=== PATIENT | female | born 1960 | race Caucasian/White ===

== ENCOUNTER 2019-07-31 16:44 | Inpatient (IN) | payer MEDICAID ==
[~2019-07-31] VITALS: Ht 152.4 cm; Wt 52.2 kg
[2019-07-31] MEDS ORDERED: SODIUM CHLORIDE 0.9% 1,000 ML IV ONE (18:16)
[2019-07-31] MEDS ORDERED: IPRATROPIUM BROMIDE (0.02%) 0.5MG/2.5ML NEB HHN STA (18:16)
[2019-07-31] MEDS ORDERED: ALBUTEROL (0.083%) 2.5MG/3ML NEB HHN STA (18:16)
[2019-07-31] MEDS ORDERED: METHYLPREDNISOLONE SOD SUCC 125 MG/2 ML VIAL IV STA (18:16)
[2019-07-31 18:31] LABS: BASOPHILS % 0.6 % (0.0-2.0); EOSINOPHILS % 1.9 % (0.0-5.0); HEMATOCRIT. 37.8 % (36.0-48.0); HEMOGLOBIN. 12.5 g/dL (12.0-16.0); LYMPHOCYTES % 17.8 % (20.0-50.0); MEAN CORPUSCULAR HEMOGLOBIN 30.9 pg (28.0-32.0); MEAN CORPUSCULAR VOLUME 93.2 fL (81.0-99.0); MEAN PLATELET VOLUME 8.8 fl (7.4-10.4); MONOCYTES % 4.5 % (2.0-8.0); NEUTROPHILS % 75.2 % (40.0-76.0); PLATELET 238 x1000/uL (130-400); RED BLOOD CELL COUNT 4.06 mill/uL (4.2-5.4); RED CELL DISTRIBUTION WIDTH 15.4 % (11.6-14.6)
[2019-07-31 18:37] LABS: CHLORIDE 106 mEq/L (98-107); PROTHROMBIN TIME 10.3 sec (9.6-11.0)
[2019-07-31] MEDS ORDERED: PIPERACILLIN/TAZ 3.375G PREMIX 50 ML IV ONE (19:00)
[2019-07-31] MEDS ORDERED: SODIUM CHLORIDE 0.9% 1000ML BAG (SEPSIS BOLUS) IV ONE (19:00)
[2019-07-31] MEDS ORDERED: LEVOFLOXACIN 500MG PREMIX 100 ML IV ONE (19:00)
[2019-07-31 23:05] VITALS: BP 104/69
[2019-08-01] MEDS ORDERED: IPRATROPIUM/ALBUTEROL 0.5-3(2.5)MG/3ML NEB HHN PRN (00:45)
[2019-08-01] MEDS ORDERED: ONDANSETRON HCL 4MG/2ML INJ IV PRN (00:45)
[2019-08-01] MEDS: SODIUM CHLORIDE 0.9% 1,000 ML IV SCH ×2 (01:11→22:00)
[2019-08-01] MEDS: PIPERACILLIN/TAZOBACTAM 3.375 G in DEXT 5% WATER 100 ML IV SCH ×3 (03:04→18:25)
[2019-08-01 04:00] VITALS: BP 109/61
[2019-08-01] MEDS: VANCOMYCIN 1 G PREMIX 200 ML IV SCH ×2 (04:10→16:21)
[2019-08-01] MEDS ORDERED: AMLO10TA80 GT (04:23)
[2019-08-01] MEDS ORDERED: ASPI-1160 GT (04:23)
[2019-08-01] MEDS ORDERED: ESCI5TAB GT (04:23)
[2019-08-01] MEDS ORDERED: LEVO125T8 GT (04:23)
[2019-08-01] MEDS ORDERED: BACL-141 GT (04:23)
[2019-08-01] MEDS ORDERED: DOCU-150 GT (04:23)
[2019-08-01 08:00] VITALS: BP 139/72
[2019-08-01] MEDS ORDERED: ENOXAPARIN 40MG/0.4ML SYR SUBCUT SCH (09:00)
[2019-08-01] MEDS: IPRATROPIUM/ALBUTEROL 0.5-3(2.5)MG/3ML NEB HHN SCH ×4 (09:13→21:28)
[2019-08-01 12:00] VITALS: BP 140/79
[2019-08-01 15:38] LABS: HEMATOCRIT. 34.5 % (36.0-48.0); HEMOGLOBIN. 11.6 g/dL (12.0-16.0); MEAN CORPUSCULAR HEMOGLOBIN 31.1 pg (28.0-32.0); MEAN CORPUSCULAR VOLUME 92.7 fL (81.0-99.0); MEAN PLATELET VOLUME 9.2 fl (7.4-10.4); PLATELET 230 x1000/uL (130-400); RED BLOOD CELL COUNT 3.72 mill/uL (4.2-5.4); RED CELL DISTRIBUTION WIDTH 15.4 % (11.6-14.6)
[2019-08-01 15:46] LABS: CHLORIDE 107 mEq/L (98-107)
[2019-08-01 16:00] VITALS: BP 98/69
[2019-08-01 16:18] LABS: HEPATITIS B SURFACE ANTIGEN NEGATIVE
[2019-08-01 16:48] LABS: HEPATITIS A AB IGM NEGATIVE (NEGATIVE)
[2019-08-01 17:15] LABS: PLATELET ESTIMATE NORMAL
[2019-08-01] MEDS: ACETAMINOPHEN 650MG/20.3ML UDC PO PRN (18:33)
[2019-08-01 20:00] VITALS: BP 123/78
[2019-08-02] VITALS: BP 117/75
[2019-08-02] MEDS: IPRATROPIUM/ALBUTEROL 0.5-3(2.5)MG/3ML NEB HHN SCH ×7 (00:47→20:51)
[2019-08-02] MEDS: VANCOMYCIN 1 G PREMIX 200 ML IV SCH ×2 (03:41→16:00)
[2019-08-02] MEDS: PIPERACILLIN/TAZOBACTAM 3.375 G in DEXT 5% WATER 100 ML IV SCH ×3 (03:41→18:45)
[2019-08-02 04:00] VITALS: BP 135/81
[2019-08-02] MEDS: ACETAMINOPHEN 650MG/20.3ML UDC PO PRN (06:19)
[2019-08-02 06:33] LABS: HEMATOCRIT. 31.2 % (36.0-48.0); HEMOGLOBIN. 10.5 g/dL (12.0-16.0); MEAN CORPUSCULAR VOLUME 92.4 fL (81.0-99.0); MEAN PLATELET VOLUME 9.5 fl (7.4-10.4); PLATELET 223 x1000/uL (130-400); RED BLOOD CELL COUNT 3.38 mill/uL (4.2-5.4); RED CELL DISTRIBUTION WIDTH 14.6 % (11.6-14.6)
[2019-08-02 06:46] LABS: CHLORIDE 103 mEq/L (98-107)
[2019-08-02 08:00] VITALS: BP 152/57
[2019-08-02] MEDS: POTASSIUM CHLORIDE 20MEQ/PACKET GT SCH ×3 (08:17→14:03)
[2019-08-02] MEDS: HYDROCODONE/ACETAMINOPHEN 5/325MG TABLET PO PRN (08:18)
[2019-08-02] MEDS: ENOXAPARIN 30MG/0.3ML SYR SUBCUT SCH (08:18)
[2019-08-02 12:00] VITALS: BP 138/68
[2019-08-02 16:00] VITALS: BP 136/68
[2019-08-02] MEDS: VANCOMYCIN 750 MG PREMIX 150 ML IV SCH (16:00)
[2019-08-02] MEDS: SODIUM CHLORIDE 0.9% 1,000 ML IV SCH (17:10)
[2019-08-02] MEDS: LEVOTHYROXINE SODIUM 50MCG TABLET PO SCH (18:12)
[2019-08-02 20:00] VITALS: BP 146/83
[2019-08-02 23:09] LABS: PLATELET ESTIMATE NORMAL
[2019-08-03] VITALS: BP 135/65
[2019-08-03] MEDS: VANCOMYCIN 750 MG PREMIX 150 ML IV SCH ×2 (00:10→08:00)
[2019-08-03] MEDS: IPRATROPIUM/ALBUTEROL 0.5-3(2.5)MG/3ML NEB HHN SCH ×6 (00:41→22:06)
[2019-08-03] MEDS: PIPERACILLIN/TAZOBACTAM 3.375 G in DEXT 5% WATER 100 ML IV SCH ×3 (02:57→22:00)
[2019-08-03 04:48] VITALS: BP 133/85
[2019-08-03] MEDS: LEVOTHYROXINE SODIUM 50MCG TABLET PO SCH (07:40)
[2019-08-03 07:47] VITALS: BP 108/67
[2019-08-03] MEDS: ENOXAPARIN 30MG/0.3ML SYR SUBCUT SCH (09:56)
[2019-08-03 12:22] VITALS: BP 100/72
[2019-08-03] MEDS: SODIUM CHLORIDE 0.9% 1,000 ML IV SCH (13:00)
[2019-08-03] MEDS ORDERED: DIATR MEGLU/DIATRIZOATE SOLN 30ML ONE (14:09)
[2019-08-03] MEDS: RISPERIDONE 1MG TABLET PO SCH ×2 (15:30→18:05)
[2019-08-03 15:44] LABS: CHLORIDE 103 mEq/L (98-107)
[2019-08-03 16:09] VITALS: BP 103/65
[2019-08-03] MEDS: HYDROCODONE/ACETAMINOPHEN 5/325MG TABLET PO PRN (16:52)
[2019-08-04 00:19] VITALS: BP 126/71
[2019-08-04] MEDS: IPRATROPIUM/ALBUTEROL 0.5-3(2.5)MG/3ML NEB HHN SCH ×6 (01:55→20:57)
[2019-08-04] MEDS: VANCOMYCIN 750 MG PREMIX 150 ML IV SCH ×2 (03:26→17:24)
[2019-08-04 04:00] VITALS: BP 144/63
[2019-08-04] MEDS: PIPERACILLIN/TAZOBACTAM 3.375 G in DEXT 5% WATER 100 ML IV SCH ×2 (04:54→11:42)
[2019-08-04 07:05] LABS: BASOPHILS % 0.5 % (0.0-2.0); EOSINOPHILS % 8.5 % (0.0-5.0); HEMATOCRIT. 35.5 % (36.0-48.0); HEMOGLOBIN. 11.9 g/dL (12.0-16.0); LYMPHOCYTES % 11.6 % (20.0-50.0); MEAN CORPUSCULAR HEMOGLOBIN 31.2 pg (28.0-32.0); MEAN CORPUSCULAR VOLUME 93.5 fL (81.0-99.0); MEAN PLATELET VOLUME 9.3 fl (7.4-10.4); MONOCYTES % 5.1 % (2.0-8.0); NEUTROPHILS % 74.3 % (40.0-76.0); PLATELET 210 x1000/uL (130-400); RED CELL DISTRIBUTION WIDTH 15.4 % (11.6-14.6)
[2019-08-04 08:07] VITALS: BP 90/68
[2019-08-04] MEDS: ENOXAPARIN 30MG/0.3ML SYR SUBCUT SCH (09:00)
[2019-08-04] MEDS: LEVOTHYROXINE SODIUM 50MCG TABLET PO SCH (11:30)
[2019-08-04] MEDS: HYDROCODONE/ACETAMINOPHEN 5/325MG TABLET PO PRN ×2 (11:30→23:29)
[2019-08-04] MEDS: RISPERIDONE 1MG TABLET PO SCH (11:32)
[2019-08-04] MEDS: SODIUM CHLORIDE 0.9% 1,000 ML IV SCH (11:53)
[2019-08-04 12:03] VITALS: BP 124/95
[2019-08-04 16:18] VITALS: BP 108/75
[2019-08-04 18:11] LABS: CREATINE KINASE 173 IU/L (26-192)
[2019-08-04 20:00] VITALS: BP 133/75
[2019-08-04 20:05] LABS: CHLORIDE 116 mEq/L (98-107)
[2019-08-04 20:09] LABS: HEMATOCRIT. 23.5 % (36.0-48.0); MEAN CORPUSCULAR HEMOGLOBIN 32.5 pg (28.0-32.0); MEAN CORPUSCULAR VOLUME 95.6 fL (81.0-99.0); MEAN PLATELET VOLUME 9.9 fl (7.4-10.4); PLATELET 150 x1000/uL (130-400); RED BLOOD CELL COUNT 2.46 mill/uL (4.2-5.4); RED CELL DISTRIBUTION WIDTH 15.7 % (11.6-14.6)
[2019-08-04 20:45] LABS: PLATELET ESTIMATE NORMAL
[2019-08-04] MEDS ORDERED: POTASSIUM CHLORIDE INJ 40 MEQ in DEXT 5% WATER 500 ML IV NR (22:00)
[2019-08-05] VITALS: BP 127/78
[2019-08-05] MEDS: IPRATROPIUM/ALBUTEROL 0.5-3(2.5)MG/3ML NEB HHN SCH ×6 (00:59→20:48)
[2019-08-05 04:00] VITALS: BP 121/88
[2019-08-05] MEDS: PIPERACILLIN/TAZOBACTAM 3.375 G in DEXT 5% WATER 100 ML IV SCH ×4 (06:22→18:50)
[2019-08-05] MEDS: SODIUM CHLORIDE 0.9% 1,000 ML IV SCH (06:22)
[2019-08-05 08:00] VITALS: BP 118/75
[2019-08-05] MEDS: RISPERIDONE 1MG TABLET PO SCH (08:43)
[2019-08-05] MEDS: LEVOTHYROXINE SODIUM 50MCG TABLET PO SCH (08:43)
[2019-08-05] MEDS: ENOXAPARIN 30MG/0.3ML SYR SUBCUT SCH (08:43)
[2019-08-05] MEDS ORDERED: POTASSIUM CHLORIDE 20MEQ TABLET SR PO NR (11:45)
[2019-08-05 12:00] VITALS: BP 120/79
[2019-08-05] MEDS ORDERED: CALCIUM GLUCONATE 1,000 MG in DEXT 5% WATER 90 ML IV NR (13:00)
[2019-08-05] MEDS: VANCOMYCIN 750 MG PREMIX 150 ML IV SCH ×2 (15:00→15:17)
[2019-08-05 16:00] VITALS: BP 118/84
[2019-08-05 17:56] LABS: BASOPHILS % 0.2 % (0.0-2.0); EOSINOPHILS % 5.6 % (0.0-5.0); HEMATOCRIT. 36.1 % (36.0-48.0); HEMOGLOBIN. 11.9 g/dL (12.0-16.0); LYMPHOCYTES % 7.1 % (20.0-50.0); MEAN CORPUSCULAR HEMOGLOBIN 31.1 pg (28.0-32.0); MEAN CORPUSCULAR VOLUME 94.3 fL (81.0-99.0); MEAN PLATELET VOLUME 9.8 fl (7.4-10.4); MONOCYTES % 5.4 % (2.0-8.0); NEUTROPHILS % 81.7 % (40.0-76.0); PLATELET 222 x1000/uL (130-400); RED BLOOD CELL COUNT 3.83 mill/uL (4.2-5.4); RED CELL DISTRIBUTION WIDTH 15.6 % (11.6-14.6)
[2019-08-05 18:08] LABS: CHLORIDE 106 mEq/L (98-107)
[2019-08-05 19:24] LABS: PLATELET ESTIMATE NORMAL
[2019-08-05 20:00] VITALS: BP 115/69
[2019-08-05] MEDS: MORPHINE SULFATE 2 MG/ML CPJ (NOT FOR IM USE) IV PRN (23:39)
[2019-08-06] VITALS: BP 138/69
[2019-08-06] MEDS: PIPERACILLIN/TAZOBACTAM 3.375 G in DEXT 5% WATER 100 ML IV SCH ×3 (02:07→18:09)
[2019-08-06] MEDS: SODIUM CHLORIDE 0.9% 1,000 ML IV SCH ×2 (02:07→22:00)
[2019-08-06] MEDS: VANCOMYCIN 750 MG PREMIX 150 ML IV SCH ×2 (02:48→14:36)
[2019-08-06 04:00] VITALS: BP 127/65
[2019-08-06] MEDS: IPRATROPIUM/ALBUTEROL 0.5-3(2.5)MG/3ML NEB HHN SCH ×6 (04:00→20:13)
[2019-08-06] MEDS: LEVOTHYROXINE SODIUM 50MCG TABLET PO SCH (07:40)
[2019-08-06 08:00] VITALS: BP 158/73
[2019-08-06] MEDS: RISPERIDONE 1MG TABLET PO SCH (08:50)
[2019-08-06] MEDS: ENOXAPARIN 30MG/0.3ML SYR SUBCUT SCH (09:02)
[2019-08-06 12:00] VITALS: BP 122/75
[2019-08-06] MEDS: MORPHINE SULFATE 2 MG/ML CPJ (NOT FOR IM USE) IV PRN ×2 (12:55→17:44)
[2019-08-06 16:00] VITALS: BP 166/79
[2019-08-06 20:10] VITALS: BP 147/100
[2019-08-06] MEDS ORDERED: HYDRALAZINE 20MG/ML VIAL IV PRN (21:15)
[2019-08-06] MEDS: HYDRALAZINE 20MG/ML VIAL IV PRN (22:03)
[2019-08-06] MEDS: DEXT 5%/0.45% NACL KCL 20MEQ/L 1,000 ML IV SCH (22:16)
[2019-08-07] MEDS: IPRATROPIUM/ALBUTEROL 0.5-3(2.5)MG/3ML NEB HHN SCH ×6 (00:22→20:38)
[2019-08-07 00:29] VITALS: BP 147/87
[2019-08-07] MEDS: MORPHINE SULFATE 2 MG/ML CPJ (NOT FOR IM USE) IV PRN ×3 (02:09→23:09)
[2019-08-07] MEDS: PIPERACILLIN/TAZOBACTAM 3.375 G in DEXT 5% WATER 100 ML IV SCH ×3 (02:11→18:00)
[2019-08-07 04:59] VITALS: BP 116/89
[2019-08-07] MEDS: LEVOTHYROXINE SODIUM 50MCG TABLET PO SCH (07:40)
[2019-08-07 08:00] VITALS: BP 169/115
[2019-08-07] MEDS: RISPERIDONE 1MG TABLET PO SCH (09:00)
[2019-08-07 09:22] LABS: CHLORIDE 106 mEq/L (98-107)
[2019-08-07] MEDS: DEXT 5%/0.45% NACL KCL 20MEQ/L 1,000 ML IV SCH ×2 (10:28→17:55)
[2019-08-07] MEDS: ENOXAPARIN 30MG/0.3ML SYR SUBCUT SCH (10:28)
[2019-08-07] MEDS: HYDRALAZINE 20MG/ML VIAL IV PRN (11:33)
[2019-08-07 11:44] VITALS: BP 236/209
[2019-08-07] MEDS ORDERED: MIDAZOLAM HCL 5 MG/5 ML VIAL IV PRN (15:26)
[2019-08-07] MEDS ORDERED: FENTANYL CITRATE/PF 50MCG/ML 2ML VIAL ONE (15:26)
[2019-08-07] MEDS ORDERED: MIDAZOLAM HCL 5 MG/5 ML VIAL ONE (15:26)
[2019-08-07] MEDS ORDERED: FENTANYL CITRATE/PF 50MCG/ML 2ML VIAL IV PRN (15:27)
[2019-08-07] MEDS: SODIUM CHLORIDE 0.9% 1,000 ML IV SCH (18:04)
[2019-08-07 20:19] VITALS: BP 139/82
[2019-08-07] MEDS ORDERED: VANCOMYCIN 750 MG PREMIX 150 ML IV SCH (22:00)
[2019-08-07] MEDS: PANTOPRAZOLE SODIUM 40 MG/VIAL IV SCH (23:09)
[2019-08-08] VITALS: BP 126/90
[2019-08-08] MEDS: IPRATROPIUM/ALBUTEROL 0.5-3(2.5)MG/3ML NEB HHN SCH ×5 (00:27→16:28)
[2019-08-08 04:00] VITALS: BP 114/64
[2019-08-08] MEDS: PIPERACILLIN/TAZOBACTAM 3.375 G in DEXT 5% WATER 100 ML IV SCH ×2 (05:48→12:32)
[2019-08-08] MEDS: DEXT 5%/0.45% NACL KCL 20MEQ/L 1,000 ML IV SCH ×2 (05:48→15:00)
[2019-08-08 07:15] LABS: INR 1.1; PARTIAL THROMBOPLASTIN TIME 30.2 sec (23.4-31.0); PROTHROMBIN TIME 10.9 sec (9.6-11.0)
[2019-08-08 07:29] LABS: CHLORIDE 105 mEq/L (98-107)
[2019-08-08 07:39] LABS: HEMATOCRIT. 32.9 % (36.0-48.0); HEMOGLOBIN. 10.9 g/dL (12.0-16.0); MEAN CORPUSCULAR HEMOGLOBIN 30.9 pg (28.0-32.0); MEAN CORPUSCULAR VOLUME 93.5 fL (81.0-99.0); MEAN PLATELET VOLUME 9.8 fl (7.4-10.4); PLATELET 223 x1000/uL (130-400); RED BLOOD CELL COUNT 3.52 mill/uL (4.2-5.4); RED CELL DISTRIBUTION WIDTH 15.8 % (11.6-14.6)
[2019-08-08 08:00] VITALS: BP 117/66
[2019-08-08] MEDS: LEVOTHYROXINE SODIUM 50MCG TABLET PO SCH (08:16)
[2019-08-08] MEDS: RISPERIDONE 1MG TABLET PO SCH (08:38)
[2019-08-08] MEDS: PANTOPRAZOLE SODIUM 40 MG/VIAL IV SCH (09:00)
[2019-08-08 10:05] LABS: PLATELET ESTIMATE NORMAL
[2019-08-08 12:00] VITALS: BP 139/68
[2019-08-08 15:09] VITALS: BP 139/68
[2019-08-08 16:00] VITALS: BP 115/76
== END 2019-08-08 19:26 | DRG 720 ==
LOC: ER 16:44 → 7WST 21:14 → EDBEDREQTM 21:20 → EDBEDREQ 21:20 → ENRESERV 22:04
PROVIDERS: ADMIT Internal Medicine; ATTEND Internal Medicine
PROC: 0DH63UZ Insertion of Feeding Device into Stomach, Percutaneous Approach (ICD-10-PCS; principal; 2019-08-07)
DX: A41.9 Sepsis, unspecified organism (principal); J96.01 Acute respiratory failure with hypoxia; J69.0 Pneumonitis due to inhalation of food and vomit; E46 Unspecified protein-calorie malnutrition; K22.2 Esophageal obstruction; R13.10 Dysphagia, unspecified; L89.619 Pressure ulcer of right heel, unspecified stage; K94.23 Gastrostomy malfunction; F03.90 Unspecified dementia, unspecified severity, without behavioral disturbance, psychotic disturbance, mood disturbance, and anxiety; R74.0 Nonspecific elevation of levels of transaminase and lactic acid dehydrogenase [LDH]; R47.02 Dysphasia; E03.9 Hypothyroidism, unspecified; I10 Essential (primary) hypertension; I25.10 Atherosclerotic heart disease of native coronary artery without angina pectoris; Y83.3 Surgical operation with formation of external stoma as the cause of abnormal reaction of the patient, or of later complication, without mention of misadventure at the time of the procedure; D64.9 Anemia, unspecified; E87.6 Hypokalemia; R62.7 Adult failure to thrive; Z74.01 Bed confinement status; Z86.73 Personal history of transient ischemic attack (TIA), and cerebral infarction without residual deficits
CPT/HCPCS: 36415; 70486; 71045; 74018; 80048; 80202; 82550; 82962; 83605; 83880; 84134; 84145; 84439; 84443; 84481; 84484; 86705; 86709; 86803; 86850; 86870; 86900; 87077; 87340; 93005; 93970; 94640; 96374; 99152; 99285; A6261; C1893; C9113; J0360; J0610; J1650; J1956; J2250; J2270; J2543; J2930; J3010; J3370; J3480; J7030; J7060; J7611; J7620; Q9963; A4315; G0500